=== PATIENT | male | born 1985 | race Caucasian/White ===

== ENCOUNTER 2016-07-14 13:49 | Emergency (ER) | payer OTHER ==
[2016-07-14] MEDS ORDERED: diPHENhydraMINE IV* 50 MG/ML 1 ml VIAL (BENADRYL) IV ONE (17:41)
[2016-07-14] MEDS ORDERED: Ketorolac INJ* 30 MG/ML 1 ML VIAL IV ONE (17:41)
[2016-07-14] MEDS ORDERED: NS 0.9% 1000 ML* 2,000 ML IV ONE (17:41)
[2016-07-14] MEDS ORDERED: PROCHLORPERAZINE INJ 5 MG/ML 2 ML VIAL IV PRN (17:48)
--- NOTE | 2016-07-14 18:03 | ED ---
Headache - HPI Summary HPI Summary: Pt. type 1 DM was recently admitted for DKA at [facility]. discharged yesterday and now with migraine headache. States his blood sugar was 178 today and he gave himeself the reguar insulin coverage. pt. denies hx. of migraines. Patient states this is "worst of life," but follows up with 9/10 frontal and parietal head pain. He states the pain is constant and began yesterday after discharge. Worse today. Today on arrival, BG was 120. Blood pressure OK. Patient states he has never had a FISHER like this before and endorses nausea but not vomiting. Denies abd pain, weakness, diarrhea or constipation. Denies neck pain. He tried motrin last night with no relief. No visual changes or stiff neck noted. No photophobia/phonophobia. [ End ] - History Of Current Complaint Chief Complaint: EDHeadache Stated Complaint: MIGRAINE HEADACHE Time Seen by Provider: 07/14/16 17:22 Hx Obtained From: Patient Onset/Duration: Started days ago - yesterday, Worse Since - this morning Initially Headache Was: "Worst Headache Ever", Initial Pain Scale(0-10)= - 9/10 , Severe Currently Pain Is: Current Pain Scale(0-10)= - 9/10, Severe Timing: Constant Character: Sharp, Throbbing, Pressure Location of Headache: Diffuse Aggravating Factor: Nothing Allevating Factors: Nothing Associated Signs And Symptoms: Nausea Related History: Recent Trauma: - recently discharged from [facility] for DKA - Risk Factors SAH Risk Factors: Negative Meningitis Risk Factors: Negative SDH Risk Factors: Male Temporal Arteritis Risk Factors: - Allergies/Home Medications Allergies/Adverse Reactions: Allergies Allergy/AdvReac Type Severity Reaction Status Date / Time Latex AdvReac Intermediate Rash Verified 02/29/16 18:41 PMH/Surg Hx/FS Hx/Imm Hx Previously Healthy: Yes - tyle 1 diabetes Endocrine/Hematology History: Reports: Hx Diabetes - Type I x 6 years., Other Endocrine/Hematological Disorders - Hx of DKA Denies: Hx Anticoagulant Therapy, Hx Thyroid Disease Cardiovascular History: Denies: Hx Congestive Heart Failure, Hx Deep Vein Thrombosis, Hx Hypertension , Hx Myocardial Infarction, Hx Pacemaker/ICD Respiratory History: Reports: Other Respiratory Problems/Disorders - 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 SMOKER Denies: Hx Asthma, Hx Chronic Obstructive Pulmonary Disease (COPD), Hx Lung Cancer, Hx Pneumonia, Hx Pulmonary Embolism GI History: Denies: Hx Gall Bladder Disease, Hx Gastrointestinal Bleed, Hx Ulcer, Hx Urosepsis History: Denies: Hx Kidney Stones, Hx Renal Disease Neurological History: Denies: Hx Dementia, Hx Migraine, Hx Seizures, Hx Transient Ischemic Attacks (TIA) Psychiatric History: Reports: Hx Anxiety, Hx Depression Denies: Hx Schizophrenia, Hx Bipolar Disorder Infectious Disease History: No Infectious Disease History: Denies: Traveled Outside the [place] in Last 30 Days - Family History Known Family History: Positive: Diabetes Negative: Cardiac Disease, Hypertension - Social History Occupation: Employed Full-time Lives: With Family Alcohol Use: Rare Hx Substance Use: No Substance Use Type: Reports: None Hx Tobacco Use: Yes Smoking Status (MU): Heavy Every Day Tobacco Smoker Type: Cigarettes Amount Used/How Often: 1/2 PPD Review of Systems Constitutional: Negative Eyes: Negative Cardiovascular: Negative Respiratory: Negative Positive: Nausea Positive: no symptoms reported, see HPI Musculoskeletal: Negative Positive: Headache - 9/10 new onset Psychological: Normal All Other Systems Reviewed And Are Negative: Yes Physical Exam Triage Information Reviewed: Yes Vital Signs On Initial Exam: Initial Vitals Temp Pulse Resp BP Pulse Ox 99.1 F 110 20 141/97 100 07/14/16 13:54 07/14/16 13:54 07/14/16 13:54 07/14/16 13:54 07/14/16 13:54 Vital Signs Reviewed: Yes Appearance: Positive: Well-Appearing, Well-Nourished, Pain Distress Skin: Positive: Warm, Skin Color Reflects Adequate Perfusion Head/Face: Positive: Normal Head/Face Inspection, Temporal Artery Tenderness Eyes: Positive: Normal, EOMI, ROSA MARIA ENT: Positive: Normal ENT inspection, Pharynx normal, TMs normal Neck: Positive: Nontender, No Lymphadenopathy Respiratory/Lung Sounds: Positive: Clear to Auscultation, Breath Sounds Present Cardiovascular: Positive: Normal Musculoskeletal: Positive: Normal, Strength/ROM Intact Neurological: Positive: Sensory/Motor Intact, Alert, Oriented to Person Place, Time, CN Intact II-III, Normal Gait, Heel to Toe, Finger to Nose, Speech Normal Psychiatric: Positive: Normal, Affect/Mood Appropriate AVPU Assessment: Alert - Vega Coma Scale Best Eye Response: 4 - Spontaneous Best Motor Response: 6 - Obeys Commands Best Verbal Response: 5 - Oriented Diagnostics - Vital Signs Vital Signs Temp Pulse Resp BP Pulse Ox 07/14/16 17:08 99.2 F 105 16 132/95 100 07/14/16 15:40 98.9 F 93 16 147/94 100 07/14/16 14:42 99.4 F 101 16 152/103 100 07/14/16 13:54 99.1 F 110 20 141/97 100 - Laboratory Result Diagrams: 07/14/16 18:18 07/14/16 18:18 Lab Statement: Any lab studies that have been ordered have been reviewed, and results considered in the medical decision making process. - CT No standard instances CT Interpretation: No Acute Changes CT Interpretation Completed By: Radiologist Headache Course/Dx - Course Course Of Treatment: Patient was recently discharged from [facility] for DKA yesterday. He notes to new onset, "worst FISHER of life" starting at time of discharge and remaining constant. He notes 9/10 FISHER pain which is diffuse. Denies photophobia/phonophobia. Denies hx of FISHER/Migraines. BG today on arrival 120. Home reading was 172. Labs, Brain CT, and fluids. Compazine, benadryl and toradol given for migraine relief. Patient feeling better after medications. FISHER now 0/10. Brain CT ordered d/t recent repletion of fluids/ potassium. Considered rebound FISHER for medications/fluids given at [facility] and cerebral edema. CT negative. Give prescription for compazine. Will have him follow up this week for close monitoring d/t recent stay in hospital. - Diagnoses Differential Diagnosis/HQI/PQRI: TIA, Migraine, Tension Headache, Viral Syndrome , Other - cerebral edema Provider Diagnoses: Headache Discharge - Discharge Plan Condition: Stable Disposition: HOME Prescriptions: Prochlorperazine TAB* [Compazine Tab*] 10 mg PO Q6H PRN #10 tab MDD 4 PRN Reason: Migraine Headache Patient Education Materials: Acute Headache (ED) Referrals: Ashok Dominguez MD [Primary Care Provider] - Additional Instructions: For acute FISHER symptoms take: Benadryl 25mg Ibuprofen 600mg Compazine 10mg at first onset of FISHER. Benadryl will make you drowsy, and until you know how compazine affects you, do not drive or operate machinery with these medications. Drink plenty of fluids. Rebound headaches from DKA can occur and may be worse with dehydration. If you develop any worsening symptoms or new symptoms such as visual disturbances, please come back to ED. Return to all medications as directed.
[2016-07-14 18:27] LABS: Hematocrit 40 % (42-52); Mean Corpuscular HGB Conc 35 g/dl (31-36); Mean Corpuscular Hemoglobin 29 pg (27-31); Mean Corpuscular Volume 84 fL (80-94); Mean Platelet Volume 9 um3 (7.4-10.4); Red Blood Count 4.82 10^6/ul (4.0-5.4); Red Cell Distribution Width 14 % (10.5-15); White Blood Count 8.2 10^3/ul (3.5-10.8)
--- NOTE | 2016-07-14 18:33 | RAD ---
Indication: New onset headache. Recent DKA Comparison: November 30, 2011 Technique: Noncontrast CT vertex of skull through foramen magnum. Report: The sulci, ventricles, and basal cisterns are normal for age. Jansen matter white matter differentiation is preserved without evidence for edema. No intra or extra axial hemorrhage, mass, or fluid collection detected. Unremarkable orbital contents. Unremarkable calvarium and skull base. Unremarkable scalp. The visualized paranasal sinuses and mastoid air spaces are clear. IMPRESSION: Negative unenhanced head CT.
[2016-07-14 18:48] LABS: ALT 39 U/L (7-52); Albumin 4.3 g/dL (3.2-5.2); Alkaline Phosphatase 63 U/L (34-104); BUN/Creatinine Ratio 10.3 (8-20); Blood Urea Nitrogen 8 mg/dL (6-24); CO2 Carbon Dioxide 34 mmol/L (22-32); Calcium 9.9 mg/dL (8.6-10.3); Chloride 97 mmol/L (101-111); EGFR African American 149.3 (>60); EGFR Non-African American 116.1 (>60); Globulin 2.9 g/dL (2-4); Glucose 195 mg/dL (70-100); Sodium 136 mmol/L (133-145); Total Protein 7.2 g/dL (6.4-8.9)
[2016-07-14 19:08] LABS: Erythrocyte Sed Rate 11 mm/Hr (0-14)
[2016-07-14 19:51] VITALS: BP 133/91
== END 2016-07-14 19:49 | disposition home or self-care (01) ==
LOC: ED 13:49
DX: R51 Headache (principal); R11.0 Nausea; F17.210 Nicotine dependence, cigarettes, uncomplicated
CPT/HCPCS: 36415; 70450; 80053; 85025; 85652; 96374; 96375; 99283; J0780; J1200; J1885

== ENCOUNTER 2017-10-27 19:35 | Emergency (ER) | payer OTHER ==
[2017-10-27] MEDS ORDERED: NS 0.9% 1000 ML* 1,000 ML IV ONE (20:05)
[2017-10-27] MEDS ORDERED: Ketorolac INJ* 30 MG/ML 1 ML VIAL IV ONE (20:05)
[2017-10-27] MEDS ORDERED: Metoclopramide IV* 5 MG/ML 2 ML VIAL IV SLOW PU ONE (20:07)
[2017-10-27] MEDS ORDERED: Insulin REGULAR(*) 1 UNITS UNIT IV PUSH ONE (20:10)
[2017-10-27] MEDS: NS 0.9% 1000 ML* 2,000 ML IV ONE (20:20)
[2017-10-27 20:54] LABS: EGFR Non-African American 91.9 (>60)
[2017-10-27] MEDS ORDERED: Ibuprofen TAB* 600 MG ONE (21:12)
[2017-10-27] MEDS ORDERED: Ibuprofen TAB* 600 MG PO ONE (21:15)
[2017-10-27 21:45] LABS: Urine Appearance Clear; Urine Blood Negative (Negative); Urine Color Yellow; Urine Ketones Trace (Negative); Urine Protein Negative (Negative); Urine Specific Gravity 1.039 (1.010-1.030); Urine Urobilinogen Negative (Negative)
[2017-10-27 21:55] LABS: ABS Basophils 0 10^3/ul (0-0.2); ABS Eosinophils 0.1 10^3/ul (0-0.6); ABS Lymphocytes 1.8 10^3/ul (1.0-4.8); ABS Monocytes 0.6 10^3/ul (0-0.8); ABS Neutrophils 3.7 10^3/ul (1.5-7.7); ABS Nucleated RBC 0 10^3/ul; Eosinophil % 1.4 % (0-6); Hematocrit 43 % (42-52); Hemoglobin 15.2 g/dl (14.0-18.0); Lymphocyte % 29.4 % (25-47); Mean Corpuscular HGB Conc 36 g/dl (31-36); Mean Corpuscular Hemoglobin 31 pg (27-31); Mean Corpuscular Volume 88 fL (80-94); Mean Platelet Volume 8.9 um3 (7.4-10.4); Nucleated Red Blood Cells % 0.2; Platelet Count 221 10^3/ul (150-450); Red Blood Count 4.87 10^6/ul (4.00-5.40); Red Cell Distribution Width 13 % (10.5-15); White Blood Count 6.2 10^3/ul (3.5-10.8)
[2017-10-27 23:20] VITALS: BP 142/91
--- NOTE | 2017-10-27 23:33 | ED ---
Ilsa Henry Gabriel, scribed for Mu Leon MD on 10/27/17 at 1954 . HPI Diabetic - HPI Summary HPI Summary: This patient is a 32 year old M brought in by police to [facility] accompanied by officer with a chief complaint of elevated blood glucose. The pt states he has not gotten his diabetic medication in 4-5 days because he has been in the skilled nursing and the nurse has not been in. He states he usually takes 40 units of Lantus and Humalog on a sliding scale. Today the nurse came in and the pt was given 40 of Lantus at noon and 17 units of Humalog around 1700. He states even after these medications his blood glucose was 524. The patient rates the pain 8/10 in severity. Patient reports nausea, soreness of the RUE, and SOB. Patient denies vomiting. He has been a diabetic for the last 5 years. - History Of Current Complaint Chief Complaint: EDDiabeticProb Time Seen by Provider: 10/27/17 19:48 Hx Obtained From: Patient Onset/Duration: Still Present Timing: Constant Severity Initially: Mild Severity Currently: Moderate Character: Alert Aggravating: Non-compliant Alleviating: Nothing Associated Signs & Symptoms: Negative - vomiting - Allergies/Home Medications Allergies/Adverse Reactions: Allergies Allergy/AdvReac Type Severity Reaction Status Date / Time latex Allergy Rash Verified 10/27/17 19:42 Home Medications: Home Medications DULoxetine CAP* [Cymbalta CAP*] 60 mg PO DAILY 10/27/17 [History Confirmed ] Insulin GLARGINE(*) [Lantus(*)] 40 units SUBCUT DAILY 10/27/17 [History Confirmed 10/27/17] Naproxen [Naprosyn 500 mg tab] 500 mg PO BID 10/27/17 [History Confirmed ] Potassium Chlor TAB* [Klor Con ER TAB 10 MEQ*] 15 meq PO DAILY 10/27/17 [ History Confirmed 10/27/17] busPIRone TAB* [Buspar TAB*] 20 mg PO TID 10/27/17 [History Confirmed 10/27/17] PMH/Surg Hx/FS Hx/Imm Hx Endocrine/Hematology History: Reports: Hx Diabetes - Type I x 6 years., Other Endocrine/Hematological Disorders - Hx of DKA Denies: Hx Anticoagulant Therapy, Hx Thyroid Disease Cardiovascular History: Denies: Hx Congestive Heart Failure, Hx Deep Vein Thrombosis, Hx Hypertension , Hx Myocardial Infarction, Hx Pacemaker/ICD Respiratory History: Reports: Other Respiratory Problems/Disorders - 1/2 PPD SMOKER Denies: Hx Asthma, Hx Chronic Obstructive Pulmonary Disease (COPD), Hx Lung Cancer, Hx Pneumonia, Hx Pulmonary Embolism GI History: Denies: Hx Gall Bladder Disease, Hx Gastrointestinal Bleed, Hx Ulcer, Hx Urosepsis History: Denies: Hx Kidney Stones, Hx Renal Disease Neurological History: Denies: Hx Dementia, Hx Migraine, Hx Seizures, Hx Transient Ischemic Attacks (TIA) Psychiatric History: Reports: Hx Anxiety, Hx Depression Denies: Hx Schizophrenia, Hx Bipolar Disorder Infectious Disease History: No Infectious Disease History: Denies: Traveled Outside the [place] in Last 30 Days - Family History Known Family History: Positive: Diabetes Negative: Cardiac Disease, Hypertension - Social History Lives: Dormitory/Roommates - skilled nursing Alcohol Use: Rare Hx Substance Use: No Substance Use Type: Reports: None Hx Tobacco Use: Yes Smoking Status (MU): Heavy Every Day Tobacco Smoker Type: Cigarettes Amount Used/How Often: 1/2 PPD Review of Systems Positive: Other - elevated blood glucose Positive: Shortness Of Breath Positive: Nausea. Negative: Vomiting Musculoskeletal: Other - RUE pain All Other Systems Reviewed And Are Negative: Yes Physical Exam - Summary Physical Exam Summary: VITAL SIGNS: Reviewed. GENERAL: Patient is a well-developed and nourished male who is lying comfortable in the stretcher. Patient is not in any acute respiratory distress. HEAD AND FACE: No signs of trauma. No ecchymosis, hematomas or skull depressions. No sinus tenderness. EYES: PERRLA, EOMI x 2, No injected conjunctiva, no nystagmus. EARS: Hearing grossly intact. Ear canals and tympanic membranes are within normal limits. MOUTH: Oropharynx within normal limits. NECK: Supple, trachea is midline, no adenopathy, no JVD, no carotid bruit, no c- spine tenderness, neck with full ROM. CHEST: Symmetric, no tenderness at palpation LUNGS: Clear to auscultation bilaterally. No wheezing or crackles. CVS: Regular rate and rhythm, S1 and S2 present, no murmurs or gallops appreciated. ABDOMEN: Soft, non-tender. No signs of distention. No rebound no guarding, and no masses palpated. Bowel sounds are normal. EXTREMITIES: FROM in all major joints, no edema, no cyanosis or clubbing. NEURO: Alert and oriented x 3. No acute neurological deficits. Speech is normal and follows commands. SKIN: Dry and warm Triage Information Reviewed: Yes Vital Signs On Initial Exam: Initial Vitals Temp Pulse Resp BP Pulse Ox 98.5 F 109 18 137/90 98 10/27/17 19:37 10/27/17 19:37 10/27/17 19:37 10/27/17 19:37 10/27/17 19:37 Vital Signs Reviewed: Yes Diagnostics - Vital Signs Vital Signs Temp Pulse Resp BP Pulse Ox 10/27/17 19:37 98.5 F 109 18 137/90 98 - Laboratory Result Diagrams: 10/27/17 21:40 10/27/17 21:40 Lab Statement: Any lab studies that have been ordered have been reviewed, and results considered in the medical decision making process. Re-Evaluation - Re-Evaluation First Eval Re-Evaluation Time: 23:29 Change: Improved Comment: The patient's blood glucose dropped to 70 and after he ate it melany again to 220. Diabetic Course/Dx - Course Assessment/Plan: This patient is a 32 year old M brought in by police to [facility] accompanied by officer with a chief complaint of elevated blood glucose. The pt states he has not gotten his diabetic medication in 4-5 days because he has been in the skilled nursing and the nurse has not been in. He states he usually takes 40 units of Lantus and Humalog on a sliding scale. Today the nurse came in and the pt was given 40 of Lantus at noon and 17 units of Humalog around 1700. He states even after these medications his blood glucose was 524. The patient rates the pain 8/10 in severity. Patient reports nausea, soreness of the RUE, and SOB. Patient denies vomiting. He has been a diabetic for the last 5 years. Dx hyperglycemia. Test results with no significant abnormalities. In the ED course the patient was given insulin and IV fluids. Patient will be discharged and follow up from the long-term nurse and his PCP. The patient is agreeable with this plan. - Diagnoses Provider Diagnoses: Hyperglycemia Discharge - Sign-Out/Discharge Documenting (check all that apply): Discharge/Admit/Transfer - Discharge Plan Condition: Stable Disposition: HOME Patient Education Materials: Diabetic Hyperglycemia (ED) Referrals: Ashok Dominguez MD [Primary Care Provider] - 1 Week Additional Instructions: RETURN TO THE ER FOR ANY NEW OR WORSENING SYMPTOMS The documentation as recorded by the Ilsa minor Gabriel accurately reflects the service I personally performed and the decisions made by , Mu Leon MD.
== END 2017-10-27 23:26 | disposition home or self-care (01) ==
LOC: ED 19:35
DX: E10.65 Type 1 diabetes mellitus with hyperglycemia (principal); Z79.4 Long term (current) use of insulin; F17.210 Nicotine dependence, cigarettes, uncomplicated
CPT/HCPCS: 36415; 80053; 81003; 82803; 83605; 83690; 83735; 85025; 86140; 99283; A9270-GY